=== PATIENT | male | born 2000 ===

== ENCOUNTER 2024-01-12 10:50 | Emergency (ER) ==
[2024-01-12] MEDS ORDERED: Mag-Al 1200 mg/1200 mg/30 ML UDCUP ONE (11:43)
[2024-01-12] MEDS ORDERED: Lidocaine Viscous Sol 2% 15 ml UD Cup ONE (11:43)
[2024-01-12] MEDS ORDERED: Ondansetron ODT 4 MG TAB ONE (11:43)
[2024-01-12] MEDS ORDERED: Famotidine 20 MG TAB ONE (11:47)
[2024-01-12 12:21] LABS: #Basophils Less than 0.03 10x3/uL (0.0-0.2); %Basophils 0.4 % (0.0-1.0); %Eosinophils 4.9 % (0.0-10.0); %Monocytes 10.3 % (0.0-10.0); %Neutrophils 58.8 % (42.0-75.0); Hematocrit 52.5 % (42.0-52.0); Hemoglobin 17.5 g/dL (14.0-18.0); Mean Corpuscular HGB CONC 33.3 g/dL (32.0-36.0); Mean Corpuscular Hemoglobin 29.1 pg (27.0-31.0); Mean Corpuscular Volume 87.2 fL (78.0-98.0); Mean Platelet Volume 8.9 fL (7.4-10.4); Platelet Count 282 10x3/uL (130-400); RBC Distribution Width 12.6 % (11.5-14.5); Red Blood Cell (RBC) Count 6.02 mill/uL (4.70-6.10)
[2024-01-12 12:55] LABS: Troponin I Less than 0.010 ng/mL (< 0.028)
[2024-01-12 12:56] LABS: ALT (SGPT) 24 U/L (8-55); AST (SGOT) 23 U/L (5-34); Albumin 4.6 g/dL (3.5-5.0); Alkaline Phosphatase 71 U/L (40-110); Anion Gap 12 mmol/L (10-20); BUN (Urea Nitrogen) 7 mg/dL (8.9-20.6); Bilirubin, Total 0.6 mg/dL (0.2-1.2); Calc. Creatinine Clearance 0 mL/min (70-130); Calcium 9.9 mg/dL (7.8-10.44); Carbon Dioxide 26 mmol/L (22-29); Chloride 105 mmol/L (98-107); Estimated GFR 106; Globulin 3.4 g/dL (2.4-3.5); Glucose 99 mg/dL (70-105); Lipase 28 U/L (8-78); Potassium 3.8 mmol/L (3.5-5.1); Sodium 139 mmol/L (136-145)
== END 2024-01-12 14:31 | disposition home or self-care (01) ==
LOC: ERS 10:50
DX: K29.00 Acute gastritis without bleeding (principal)
CPT/HCPCS: 36415; 71045; 80053; 83690; 84484; 85025; 93005; Q0162